=== PATIENT | female | born 1960 | race Caucasian/White ===

== ENCOUNTER 2022-06-03 22:42 | Emergency (ER) | payer MEDICARE, MEDICAID ==
[2022-06-03 23:36] VITALS: BP 133/90
[2022-06-03 23:45] VITALS: BP 131/82
[2022-06-03 23:47] LABS: BASO% 0.3 % (0-3); EOS% 0.5 % (0-8); HEMATOCRIT 50.9 % (37.0-47.0); HEMOGLOBIN 16.5 g/dl (12.0-16.0); IMMATURE GRANULOCYTES 0.4 % (0.0-5.0); LYMPH% 9.3 % (15-41); MEAN CORPUSCULAR HGB 30.8 pG CALC (26.0-32.0); MEAN CORPUSCULAR HGB CONC 32.4 g/dL CAL (32.0-36.0); MONO% 5.2 % (2-13); NEUT# 11.9 thou/uL (2.00-7.15); NEUT% 84.3 % (42-76); RED BLOOD COUNT 5.36 mill/uL (4.20-5.60); RED CELL DISTRI WIDTH 14.1 % (11.5-15.5)
[2022-06-04] VITALS (24 sets, daily range): BP systolic 98–142; BP diastolic 37–100
[2022-06-04 00:03] LABS: ALBUMIN 5.1 g/dL (3.2-5.0); BILIRUBIN, TOTAL 0.6 mg/dL (0.02-1.3); CREATININE 1.8 mg/dL (0.5-1.0); POTASSIUM 4.4 mmol/l (3.5-5.1); TOTAL PROTEIN 9.3 g/dL (6.3-8.2)
[2022-06-04] MEDS ORDERED: PROVIGIL100 M1 (01:45)
[2022-06-04] MEDS ORDERED: LEVOTHYROXIN50 MCG PO (01:46)
[2022-06-04] MEDS ORDERED: BUPROPION100 MG PO (01:47)
[2022-06-04] MEDS ORDERED: NEURONTIN100 MG PO (01:47)
[2022-06-04] MEDS ORDERED: FLUOXETINE10 M2 PO (01:47)
[2022-06-04] MEDS ORDERED: ADDERALL10 MG PO (01:48)
[2022-06-04] MEDS ORDERED: DHIVY 100-25 MG1 TAB (01:48)
[2022-06-04] MEDS ORDERED: IBUPROFEN600 MG PO (01:49)
[2022-06-04] MEDS ORDERED: ATORVASTATIN CA10 MG PO (01:50)
[2022-06-04] MEDS ORDERED: DILAUDID2 MG PO (01:50)
[2022-06-04] MEDS ORDERED: PROPRANOLOL HYD40 MG (01:53)
== END 2022-06-04 07:10 | disposition home or self-care (01) ==
LOC: ED 22:42
PROVIDERS: Family Medicine
DX: G43.909 Migraine, unspecified, not intractable, without status migrainosus (principal); F90.9 Attention-deficit hyperactivity disorder, unspecified type; G47.419 Narcolepsy without cataplexy